=== PATIENT | male | born 1985 | race American Indian/Alaskan Native ===

== ENCOUNTER 2018-08-19 18:27 | Emergency (ER) | payer OTHER ==
[2018-08-19 18:58] VITALS: BP 197/109
[2018-08-19] MEDS ORDERED: ULTRAM PO ONE (19:29)
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
[2018-08-20] MEDS ORDERED: D50W (25GM) Syringe IV ONE (00:02)
== END 2018-08-19 21:20 | disposition home or self-care (01) ==
LOC: ED 18:27
DX: S50.312A Abrasion of left elbow, initial encounter (principal); M25.511 Pain in right shoulder; R07.89 Other chest pain; V49.49XA Driver injured in collision with other motor vehicles in traffic accident, initial encounter; Y93.89 Activity, other specified; Y92.410 Unspecified street and highway as the place of occurrence of the external cause; Y99.8 Other external cause status